=== PATIENT | female | born 1980 | race American Indian/Alaskan Native ===

== ENCOUNTER 2017-08-29 16:40 | Emergency (ER) | payer OTHER ==
[2017-08-29] MEDS ORDERED: ULTRAM PO ONE (19:23)
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
--- NOTE | 2017-08-29 21:00 | XRay Report ---
FINAL REPORT EXAM: XR KNEE 3V RT HISTORY: right knee pain TECHNIQUE: Frontal and lateral views of right knee. PRIORS: None. FINDINGS: Joint spaces maintained. No apparent fracture or dislocation. Soft tissues grossly unremarkable. IMPRESSION: 1. No acute osseous abnormality.
--- NOTE | 2017-08-29 21:12 | XRay Report ---
FINAL REPORT EXAM: XR FEMUR 2+V RT HISTORY: lateral right upper leg pain TECHNIQUE: Frontal and lateral views of right femur. PRIORS: None. FINDINGS: No apparent fracture or dislocation. Soft tissues grossly unremarkable. IMPRESSION: 1. No acute osseous abnormality.
--- NOTE | 2017-08-29 21:15 | XRay Report ---
FINAL REPORT EXAM: XR RIBS UNI W PA CHEST 3+V RT HISTORY: anteriolateral right lower rib pain TECHNIQUE: Frontal chest x-ray. 2 views of right ribs. PRIORS: None. FINDINGS: Cardiac and mediastinal silhouette within normal limits. Lungs are grossly clear. No apparent pneumothorax. No obvious or displaced right rib fracture. IMPRESSION: 1. No acute findings.
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
[2017-08-29 22:14] VITALS: BP 120/78
== END 2017-08-29 22:14 | disposition home or self-care (01) ==
LOC: ED 16:40
DX: M25.551 Pain in right hip (principal); R07.81 Pleurodynia; G43.909 Migraine, unspecified, not intractable, without status migrainosus; Z87.891 Personal history of nicotine dependence
CPT/HCPCS: 99283